=== PATIENT | male | born 1950 | race Caucasian/White ===

== ENCOUNTER → 2016-11-24 | Outpatient (CLI) | payer BC ==
[~2016-11-24] MED LIST: ACETAMINOPHEN-1 EAC1 ORAL; ASPIR 8181 MG ORAL; CIPRO500 MG PO; CIPROFLOXACIN500 M2 ORAL; COSOPT1 DRO2 RIGHT EYE; DEXILANT30 MG ORAL; FERROUS SULFAT325 MG ORAL; Iothalamate Meglumine 60% 30ML INJ ONE; JALYN 0.5-0.41 EACH PO; MULTIVITAMINS1 EAC2 ORAL; RAPAFLO-PATIENT'1 EA PO; VYTORIN 10-401 EACH ORAL
--- NOTE | 2016-11-24 15:50 | Diagnostic Imaging Report ---
Indications: Right lower quadrant abdominal pain, history of bladder cancer Technique: Continuous helical CT imaging of the abdomen and pelvis was performed with automatic exposure control following administration of oral contrast only, on a Siemens sensation [address] scanner. Axial, coronal, sagittal images reconstructed at 3 mm slice thickness. No IV contrast was administered per requesting physicians order, , no contraindications listed. CTDI volume(s): 17 mGy Total DLP: 907 mGy-cm Findings: Comparison: CT abdomen pelvis without and with contrast 09/29/2015 Urinary bladder remains moderately distended with mild diffuse mural thickening, anterior dome diverticulum. Endophytic masses emanating from the left lateral and posterior urinary bladder lowery on previous exam have significantly decreased in size or disappeared. Mild residual asymmetric mural thickening persists in therefore locations. New 17 mm Endophytic mass emanates from the posterior wall of the urinary bladder inferior to the prior site, not seen previously. Indentation, possible invasion of the floor of the urinary bladder by enlarged, multilobulated prostate is unchanged. The perivesical soft tissues remain unremarkable in appearance. Mild dilation of the left renal collecting system and ureter to the level of the ureterovesical junction persists, decreased. Right ureter and renal collecting system remain normal in caliber. Mild stranding again noted adjacent to both kidneys, unchanged. Circumscribed low-attenuation masses emanating exophytically from lower pole cortex of right kidney has mildly increased in size, now 15 mm, not further characterizable on this exam. Accessory splenules, scattered arterial mural calcifications (vascular patency currently indeterminate), relatively proximal position of left testis with adjacent hydrocele persist, not significant changed. Remainder visualized abdominopelvic anatomy demonstrates no other obvious significant abnormality. Small irregular pleural-based linear densities persist in the right lung base. Left lung base, bilateral adjacent pleural surfaces remain clear. Multilevel disc space narrowing with marginal osteophyte formation, vacuum phenomenon, discogenic sclerosis in the lumbar and lower thoracic spine, facet sclerosis and hypertrophy in the lower lumbar spine persist, unchanged. No focal skeletal lesion is identified. IMPRESSION: No evidence of acute abdominopelvic disease, evaluation limited by lack of IV contrast Apparent decrease in to disappearance of the 2 previous bilateral endophytic urinary bladder wall masses present on previous exam and development of versus increase in size of new/third mass more inferiorly along the posterior bladder wall. Neoplasm must be considered. Cystoscopy suggested for further evaluation if not recently performed. Decrease in left hydronephrosis and hydroureter with mild residual Stable prostatomegaly with evidence of chronic bladder outflow obstruction including mural hypertrophy, diverticulum Apparent mild increase in size of right renal lower pole exophytic mass. While cysts can increase in size, neoplasm must be excluded. Ultrasound correlation recommended. Additional stable chronic changes as described
== END | disposition home or self-care (01) ==
LOC: CAT 13:33
DX: R10.11 Right upper quadrant pain (principal); Z85.51 Personal history of malignant neoplasm of bladder; N13.30 Unspecified hydronephrosis; N40.0 Benign prostatic hyperplasia without lower urinary tract symptoms
CPT/HCPCS: 74176

== ENCOUNTER 2016-11-25 05:40 | Day surgery (SDC) | payer BC ==
[2016-11-21 09:33] LABS: BASOPHILS % (AUTO) 1.2 % (0.0-2.0); EOSINOPHILS % (AUTO) 1.6 % (0.0-3.0); LYMPHOCYTES % (AUTO) 22.9 % (20.0-45.0); MEAN CORPUSCULAR HEMOGLOBIN 28.9 PG (27.0-31.0); MEAN CORPUSCULAR HGB CONC 32.8 G/DL (32.0-36.0); MEAN CORPUSCULAR VOLUME 88 FL (80-99); MEAN PLATELET VOLUME 6.1 FL (6.5-10.1); NEUTROPHILS % (AUTO) 66.4 % (45.0-75.0); PLATELET COUNT 309 K/UL (150-450); RED BLOOD COUNT 5.38 M/UL (4.70-6.10); RED CELL DISTRIBUTION WIDTH 11.8 % (11.6-14.8)
[2016-11-21 09:39] LABS: PROTHROMBIN TIME 10.4 SEC (9.30-11.50)
[2016-11-21 09:54] LABS: ALBUMIN/GLOBULIN RATIO 1.3 (1.0-2.7); CALCIUM 9.4 mg/dL (8.6-10.2); CREATININE 1.4 mg/dL (0.7-1.2); GLOMERULAR FILTRATION RATE 50.7 mL/min (>60); POTASSIUM 4.6 mEQ/L (3.4-4.9); TOTAL PROTEIN 7.5 g/dL (6.6-8.7)
[2016-11-21 10:16] LABS: PSA TOTAL 2.4 ng/mL (< 4.5); THYROID STIMULATING HORMONE 0.952 uIU/mL (0.300-4.500)
[2016-11-21 11:04] LABS: HEMOGLOBIN A1C 6.7 % (< 6.0)
[2016-11-21 11:14] LABS: CHOLESTEROL/HDL RATIO 4.5 (3.3-4.4)
[~2016-11-25] VITALS: Ht 175.3 cm; Wt 91.2 kg
[2016-11-25] VITALS (9 sets, daily range): BP systolic 123–139; BP diastolic 65–78
[~2016-11-25 05:40] MED LIST changes: -Iothalamate Meglumine 60% 30ML INJ ONE
--- NOTE | 2016-11-25 06:40 | Anethesia Preoperative Eval ---
Anesthesia Pre-op PMH/ROS General Date of Evaluation: November 25, 2016 Anesthesiologist: Keven ASA Score: ASA 2 Mallampati Score Class I : Soft palate, uvula, fauces, pillars visible Class II: Soft palate, uvula, fauces visible Class III: Soft palate, base of uvula visible Class IV: Only hard plate visible Mallampati Classification: Class II Surgeon: Gary Diagnosis: Bladeer canceer Surgical Procedure: Cystoscopy, TURBT Anesthesia History: none Family History: no anesthesia problems Allergies: Coded Allergies: PEANUT (Unverified Allergy, Unknown, 05/10/14) Medications: see eMAR Past Medical History Cardiovascular: Reports: other - HLD, Denies: CAD, HTN, RI, arrhythmia, valve dz Pulmonary: Denies: COPD, BHUMIKA, asthma, other Gastrointestinal/Genitourinary: Reports: GERD, other - chronic left hydronephrosis, BPH, Denies: CRI, ESRD Neurologic/Psychiatric: Denies: CVA, TIA, dementia, depression/anxiety, other Endocrine: Denies: DM, hypothyroidism, other, steroids HEENT: Denies: [place] (L), [place] (R), cataract (L), cataract (R), glaucoma, other Hematology/Immune: Denies: DVT, anemia, bleeding disorder, other Musculoskeletal/Integumentary: Denies: DDD, DJD, OA, RA, edema, other PSxH Narrative: T&A, TURBT Anesthesia Pre-op Phys. Exam Physician Exam Last Vital Signs Date Time Temp Pulse Resp B/P Pulse Ox O2 Delivery O2 Flow Rate FiO2 11/25/16 06:02 97.9 64 18 123/72 95 Room Air Constitutional: NAD Cardiovascular: RRR Respiratory: CTA Airway Exam Mallampati Score: Class II MO: full ROM: full Teeth: intact Anesthesia Pre-op A/P Labs see chart Studies Pre-op Studies: EKG - sr Risk Assessment & Plan Assessment: ASA II Plan: GA Status Change Before Surgery: No Pre-Antibiotics Drug: Ancef 2g Given Within 1 Hr of Incision: LAZARO Oliveira M.D. November 25, 2016 06:40
[2016-11-25] MEDS ORDERED: MITOMYCIN TOPIC ONE (07:00)
[2016-11-25] MEDS ORDERED: Cefepime HCl 1 GM in D5W 55 ML IVPB ONE (07:00)
[2016-11-25] MEDS ORDERED: Cefepime 1gm vial ONE (07:03)
--- NOTE | 2016-11-25 07:12 | Urology Progress Note ---
Assessment/Plan Assessment/Plan hx of bladder ca, recurrent tumor BPH hx retention hx hydro hx plan TURBT may need right ureteral stent because of close proximity of tumor to right ureteral orifice d/w pt fully risks, etc Subjective Allergies: Coded Allergies: PEANUT (Unverified Allergy, Unknown, 05/10/14) Subjective for surg today, PMH/chart all noted Objective Last 24 Hour Vital Signs Date Time Temp Pulse Resp B/P Pulse Ox O2 Delivery O2 Flow Rate FiO2 11/25/16 06:02 97.9 64 18 123/72 95 Room Air Height (Feet): 5 Height (Inches): 9.00 Weight (Pounds): 201 Objective exam stable SUDEEPNICOLÁS MONTES DE OCA November 25, 2016 07:12
--- NOTE | 2016-11-25 07:13 | Pre-Procedure Note/Attestation ---
Pre-Procedure Note/Attestation Complete Prior to Procedure Planned Procedure: bilateral Procedure Narrative: cystoscopy, TURBT, bladder biopsy, bilateral retrograde pyelogram, instill mitomycin, possible ureteral stent Indications for Procedure Pre-Operative Diagnosis: recurrent bladder tumor Attestation I attest that I discussed the nature of the procedure; its benefits; risks and complications; and alternatives (and the risks and benefits of such alternatives ), prior to the procedure, with the patient (or the patient's legal installation service representative). I attest that, if there was a reasonable possibility of needing a blood transfusion, the patient (or the patient's legal installation service representative) was given the [facility] standardized written summary, pursuant to the Seth Lisa Blood Safety Act ([place] Health and Safety Code # 1645, as amended). I attest that I re-evaluated the patient just prior to the surgery and that there has been no change in the patient's H&P, except as documented below: n/a NICOLÁS PENN November 25, 2016 07:13
[2016-11-25] MEDS ORDERED: Nimbex 2mg/ml Inj 10ML IVP ONE (07:30)
[2016-11-25] MEDS ORDERED: fentaNYL 250mcg/5ml ONE (07:30)
[2016-11-25] MEDS ORDERED: Metoclopramide 10mg/2ml Inj ONE (07:30)
[2016-11-25] MEDS ORDERED: Dexamethasone 4mg/ml vial ONE (07:30)
[2016-11-25] MEDS ORDERED: Propofol 10mg/ml 20ml IV ONE (07:30)
[2016-11-25] MEDS ORDERED: Lidocaine 1% MPF 10mg/ml 5ml ONE (07:30)
[2016-11-25] MEDS ORDERED: Midazolam 2mg/2ml Inj ONE (07:30)
[2016-11-25] MEDS ORDERED: NS Irrig 4000ml IRRIG ONE (07:43)
[2016-11-25] MEDS ORDERED: Sterile Water For Irrig 2000ml IRRIG ONE (07:43)
[2016-11-25] MEDS ORDERED: NS Irrig 1000ml IRRIG ONE (07:43)
[2016-11-25] MEDS ORDERED: Sterile Water Irrig 1000ml IRRIG ONE (07:43)
[2016-11-25] MEDS ORDERED: Metoclopramide 10mg/2ml Inj IVP PRN (07:45)
[2016-11-25] MEDS ORDERED: LORazepam Inj 2mg/ml 1ml IV PRN (07:45)
[2016-11-25] MEDS ORDERED: Hydromorphone 0.5mg/0.5ml inj IVP PRN (07:45)
[2016-11-25] MEDS ORDERED: DiphenhydrAMINE 50mg/ml Inj IVP PRN (07:45)
[2016-11-25] MEDS ORDERED: fentaNYL 100 mcg/2 mL IV PRN (07:45)
[2016-11-25] MEDS ORDERED: Midazolam 2mg/2ml Inj IVP PRN (07:45)
[2016-11-25] MEDS ORDERED: Iothalamate Meglumine 60% 30ML INJ ONE (07:57)
--- NOTE | 2016-11-25 08:55 | Brief Operative Note ---
Immediate Post Operative Note Operative Note Pre-op Diagnosis: recurrent bladder tumor Procedure: cystoscopy, random bladder biopsies, bilateral retrograde pyelograms, TURBT, right ureteral stent, instill mitomycin Post-op Diagnosis: same as pre-op Findings: other - large papillary tumor near right ureteral orifice, smaller tumor left posterior Surgeon: martin Anesthesiologist: seamus Anesthesia: general Specimen: yes Complications: none Condition: stable Estimated Blood Loss: minimal Drains: other - brower Implant(s) used?: Yes - 6f x 26 cm right JJ ureteral stent NICOLÁS PENN November 25, 2016 08:55
--- NOTE | 2016-11-25 09:06 | Immediate Post-Op Evaluation ---
Immediate Post-Op Evalulation Immediate Post-Op Evalulation Procedure: Cystoscopy, TURBT, bladder biopsy, retrograde pyelogram Date of Evaluation: November 25, 2016 Time of Evaluation: 09:07 IV Fluids: 950 Blood Products: 0 Estimated Blood Loss: <50ml Urinary Output: 0 Blood Pressure Systolic: 130 Blood Pressure Diastolic: 65 Pulse Rate: 76 Respiratory Rate: 16 O2 Sat by Pulse Oximetry: 99 Temperature (Fahrenheit): 98.2 Pain Score (1-10): 0 Nausea: No Vomiting: No Complications 0 Patient Status: awake, reacts, patent, none Hydration Status: adequate Drug: Cefepime 1g Given Within 1 Hr of Incision: Yes Time Given: 07:30 LAZARO NOBLE M.D. November 25, 2016 09:06
--- NOTE | 2016-11-25 10:53 | 48 Hour Post Anesthesia Eval ---
Post Anesthesia Evaluation Procedure: Cystoscopy, TURBT, bladder biopsy, retrograde pyelogram Date of Evaluation: November 25, 2016 Time of Evaluation: 10:55 Blood Pressure Systolic: 139 0: 73 Pulse Rate: 75 Respiratory Rate: 20 Temperature (Fahrenheit): 98.2 O2 Sat by Pulse Oximetry: 99 Airway: patent Nausea: No Vomiting: No Pain Intensity: 1 Hydration Status: adequate Cardiopulmonary Status: at baseline Mental Status/LOC: patient returned to baseline Post-Anesthesia Complications: 0 Follow-up care needed: ready to discharge LAZARO NOBLE M.D. November 25, 2016 10:53
[2016-11-25] MEDS ORDERED: Norco 5mg/325mg tab ORAL ONE (11:15)
--- NOTE | 2016-11-25 14:14 | Diagnostic Imaging Report ---
Indication: PAIN Technique: Digital intraoperative images Comparison: 10/07/2015 Findings: Opacification of normal caliber ureters, mildly prominent bilateral renal collecting system is demonstrated. Completion images demonstrate placement of a right nephroureteral stent Impression: Intraoperative imaging, as described
--- NOTE | 2016-11-26 09:02 | Operative Note - Dictated ---
DATE OF OPERATION: 11/25/2016 NOTE: POOR AUDIO QUALITY PREOPERATIVE DIAGNOSIS: Recurrence of bladder tumor. POSTOPERATIVE DIAGNOSIS: Recurrence of bladder tumor. PROCEDURE PERFORMED: Cystoscopy with urethral calibration, random bladder biopsies, bilateral retrograde pyelogram, transurethral resection of the bladder tumor with extensive fulguration and intravesical instillation of mitomycin. OPERATING SURGEON: Gregory Vega M.D. ANESTHESIOLOGIST: Dr. Harmon. ANESTHESIA: General. INDICATION FOR PROCEDURE: This is a pleasant 66-year-old male, who has a history of BPH. He has a history of bladder cancer. He has had a tumor resection last year. He has had treatment with intravesical BCG. Recent surveillance cystoscopy revealed recurrence of the tumor. He had two papillary tumors, the larger one on the trigone adjacent to the right ureteral orifice and a smaller one in the left posterior. He had a CT scan, which did not show any metastatic disease. He has left-sided hydronephrosis, which is mild and it is chronic. Decision was made to proceed with dissection of the recurrent tumor. The nature of the procedure was discussed with the patient extensively in detail, possible risks and complications of bleeding, infection, anesthesia, damage to the bladder, perforation, etc., were discussed. No guarantees were given or implied. I did explain in detail to the patient that the larger bladder tumor is very close to the right ureteral orifice and that orifice may need to place a stent in the ureter and he understands this. FINDINGS: The patient had an acute bladder tumor. The larger one was on the trigone just adjacent and posterior to the right ureteral orifice. This was about 2 to 3 cm and the other one was a small papillary tumor that was on the posterior wall of the bladder. Bilateral retrograde pyelogram did not show any upper tract abnormalities. Random biopsies were taken. from the previous resection he does have some distal apical obstruction. PROCEDURE IN DETAIL: Informed consent was obtained from the patient. The patient was brought to the operating room and placed in the supine position. General anesthesia was induced. The patient was placed in a modified dorsal lithotomy position and genitalia was prepped and draped in the usual sterile fashion. Preoperative IV antibiotics were administered. Time-out was performed. At this point, the distal calibrated . Cystoscopy was performed. The urethra showed some panurethral narrowing. I was able to push the scope through the there was some obstructive tissue distally. The bladder neck was opened. The bladder was then inspected carefully, biopsies. The left ureteral orifice was patulous. There was papillary tumor that was adjacent and behind the right ureteral orifice, which is about 2 cm. There was a smaller papillary tumor in the left posterior. At this point, the left ureteral orifice was cannulated with open-end catheter and retrograde pyelogram was done ____ of the ureter the distal ureter with contrast. the contrast would not go up into the kidney. As such, an angled wire was then passed through to negotiate up into the proximal ureter. The open-end of the catheter was advanced and contrast was then injected opacified at the proximal the left side of the ____. On the right side, the orifice was encountered with an open-ended catheter. Retrograde pyelogram was done, which did not show any upper tract filling defects. At this point, random bladder biopsies were taken and the cold cup biopsies right lateral posterior wall of the bladder. These areas were then cauterized. Good hemostasis was obtained. At this point, the cystoscope was then removed and then switched over to resectoscope. bipolar and tumor on the trigone was dissected down to the base. The area of the dissection was very close to the orifice. At this point, a decision was made by me right ureteral stent to protect the orifice. I do not want to cauterize that area. The tumor in the left posterior area was also dissected with resectoscope. The base was then cauterized with the . The resectoscope was then removed. The cystoscope was reinserted in the right ureteral orifice ____ and an angled wire was then passed and a 6-Greek x26 cm double-J stent was placed in the collecting system under fluoroscopic and visual guidance. It appeared to be in good position with a good curve in the kidney as well as the bladder. A small string was noted at the distal end. At this time, using a bulb, the further cauterization was done at the area of the tumor and hemostasis was obtained and Greek Kilgore catheter was placed with 40 mg of mitomycin and 40 mL of water was instilled into the bladder. The catheter was clamped and the patient was taken to recovery in stable condition. Blood loss is minimal. No complications. The plan is to the Kilgore catheter to gravity drainage in one hour in the recovery room. Gregory Vega M.D. DR: ANDRES JOB#: [id number] CC:
== END 2016-11-25 12:05 | disposition home or self-care (01) ==
LOC: SUR 05:40 → EDSTATUS 07:30 → SUR 12:05
DX: C67.4 Malignant neoplasm of posterior wall of bladder (principal); E78.5 Hyperlipidemia, unspecified; K21.9 Gastro-esophageal reflux disease without esophagitis; N13.39 Other hydronephrosis; N40.0 Benign prostatic hyperplasia without lower urinary tract symptoms; Z91.010 Allergy to peanuts
CPT/HCPCS: 36415; 52234; 74420; 76000; 80053; 80061; 83036; 84153; 84439; 84443; 84480; 85025; 85610; 85730; J0692; J1100; J2250; J2405; J2704; J2765; J3010; Q9961; 94003; 94150

== ENCOUNTER 2018-06-28 05:35 | Day surgery (SDC) | payer BC ==
[2018-06-18 16:28] LABS: BASOPHILS % (AUTO) 1.3 % (0.0-2.0); EOSINOPHILS % (AUTO) 2.6 % (0.0-3.0); HEMATOCRIT 44.1 % (42.0-52.0); HEMOGLOBIN 14.9 G/DL (14.2-18.0); MEAN CORPUSCULAR VOLUME 86 FL (80-99); MONOCYTES % (AUTO) 10.2 % (1.0-10.0); NEUTROPHILS % (AUTO) 60.9 % (45.0-75.0); PLATELET COUNT 286 K/UL (150-450); RED BLOOD COUNT 5.15 M/UL (4.70-6.10); RED CELL DISTRIBUTION WIDTH 11.2 % (11.6-14.8); WHITE BLOOD COUNT 9.2 K/UL (4.8-10.8)
[2018-06-18 17:00] LABS: INR 0.9 (0.9-1.1)
[2018-06-18 17:04] LABS: ANION GAP 12 mmol/L (5-15); BLOOD UREA NITROGEN 20 mg/dL (7-18); CALCIUM 8.8 MG/DL (8.5-10.1); CARBON DIOXIDE 26 MMOL/L (21-32); CHLORIDE 104 MMOL/L (98-107); CREATININE 1.4 MG/DL (0.55-1.30); POTASSIUM 4.1 MMOL/L (3.5-5.1); SODIUM 142 MMOL/L (136-145)
--- NOTE | 2018-06-26 12:23 | Cardiology Report ---
APPROVED REPORT EKG Measurement Heart [id number] VT [id number] [id number] Normal sinus rhythm Normal ECG
[~2018-06-28] VITALS: Ht 175.3 cm; Wt 83.9 kg
[2018-06-28] VITALS (18 sets, daily range): BP systolic 102–139; BP diastolic 6–72
[2018-06-28] MEDS ORDERED: Cefepime HCl 1 GM in D5W 55 ML IVPB ONE (05:45)
[2018-06-28] MEDS ORDERED: TAMSULOSIN HCL0.4 MG ORAL (06:14)
[2018-06-28] MEDS ORDERED: AVODART0.5 MG ORAL (06:14)
[2018-06-28] MEDS ORDERED: METFORMIN HCL500 M1 ORAL (06:14)
[2018-06-28] MEDS ORDERED: tragenta PO (06:14)
[2018-06-28] MEDS ORDERED: fentaNYL 100 mcg/2 mL IV ONE (06:44)
[2018-06-28] MEDS ORDERED: Midazolam 2mg/2ml Inj ONE (06:45)
[2018-06-28] MEDS ORDERED: cefOXitin 1gm Inj ONE (06:54)
[2018-06-28] MEDS ORDERED: Zemuron 50mg/5ml Inj IV ONE (06:54)
[2018-06-28] MEDS ORDERED: Succinylcholine 20mg/ml 10ml vial ONE (06:55)
[2018-06-28] MEDS ORDERED: Lidocaine 1% MPF 10mg/ml 5ml ONE (06:56)
[2018-06-28] MEDS ORDERED: Propofol 200mg/20ml IV ONE (06:56)
[2018-06-28] MEDS ORDERED: LR 1000ml ONE (07:00)
[2018-06-28] MEDS ORDERED: Sterile Water Irrig 1000ml IRRIG ONE (07:00)
[2018-06-28] MEDS ORDERED: Sterile Water For Irrig 2000ml IRRIG ONE (07:00)
[2018-06-28] MEDS ORDERED: Iothalamate Meglumine 60% 30ML INJ ONE (07:03)
--- NOTE | 2018-06-28 07:12 | Urology Progress Note ---
Assessment/Plan Assessment/Plan bladder ca hx with recurrence BPH hx LUTS hx plan TURBT/bx/RPG/mitocycin today preop labs are noted d/w pt fully will proceed Objective Last 24 Hour Vital Signs Date Time Temp Pulse Resp B/P (MAP) Pulse Ox O2 Delivery O2 Flow Rate FiO2 06/28/18 06:24 Room Air 06/28/18 06:19 97.9 72 18 139/71 97 Room Air Height (Feet): 5 Height (Inches): 9.00 Weight (Pounds): 185 Objective exam stable Gregory Vega MD Jun 28, 2018 07:12
--- NOTE | 2018-06-28 07:13 | Pre-Procedure Note/Attestation ---
Pre-Procedure Note/Attestation Complete Prior to Procedure Planned Procedure: bilateral Procedure Narrative: cysto, TURBT, bladder biopsy, bilateral RPG, instill mitomycin Indications for Procedure Pre-Operative Diagnosis: bladder ca hx with recurrence Attestation I attest that I discussed the nature of the procedure; its benefits; risks and complications; and alternatives (and the risks and benefits of such alternatives ), prior to the procedure, with the patient (or the patient's legal enrollment representative). I attest that, if there was a reasonable possibility of needing a blood transfusion, the patient (or the patient's legal enrollment representative) was given the [facility] standardized written summary, pursuant to the Seth Lisa Blood Safety Act ([place] Health and Safety Code # 1645, as amended). I attest that I re-evaluated the patient just prior to the surgery and that there has been no change in the patient's H&P, except as documented below: Gregory Vega MD Jun 28, 2018 07:13
[2018-06-28] MEDS ORDERED: LR 1000ml 1,000 ML IVLG SCH (08:17)
--- NOTE | 2018-06-28 08:17 | Anethesia Preoperative Eval ---
Anesthesia Pre-op PMH/ROS General Date of Evaluation: Jun 28, 2018 Time of Evaluation: 06:55 Anesthesiologist: Matt ASA Score: ASA 2 Mallampati Score Class I : Soft palate, uvula, fauces, pillars visible Class II: Soft palate, uvula, fauces visible Class III: Soft palate, base of uvula visible Class IV: Only hard plate visible Mallampati Classification: Class II Surgeon: Gary Diagnosis: Recurrent bladder tumor Surgical Procedure: Cysto ecxcision of bladder tumor Anesthesia History: none Family History: no anesthesia problems Allergies: Coded Allergies: PEANUT (Unverified Allergy, Unknown, 05/10/14) Medications: see eMAR Patient NPO?: Yes Past Medical History Cardiovascular: Denies: HTN, CAD, DC, valve dz, arrhythmia, other Pulmonary: Denies: asthma, COPD, BHUMIKA, other Gastrointestinal/Genitourinary: Reports: GERD, CRI - Cr. 1,4, other - recurrent bladder tumor Neurologic/Psychiatric: Denies: dementia, CVA, depression/anxiety, TIA, other Endocrine: Reports: DM - stable on pills; Denies: hypothyroidism, steroids, other HEENT: Denies: cataract (L), cataract (R), glaucoma, [place] (L), [place] (R), other Hematology/Immune: Denies: anemia, DVT, bleeding disorder, other Musculoskeletal/Integumentary: Denies: OA, RA, DJD, DDD, edema, other PMH Narrative: as above PSxH Narrative: Treatment of recurrent bladder tumor Anesthesia Pre-op Phys. Exam Physician Exam Last Vital Signs Date Time Temp Pulse Resp B/P (MAP) Pulse Ox O2 Delivery O2 Flow Rate FiO2 06/28/18 06:24 Room Air 06/28/18 06:19 97.9 72 18 139/71 97 Constitutional: NAD Neurologic: CN 2-12 intact Cardiovascular: RRR, no M/R/G Respiratory: CTA Gastrointestinal: S/NT/ND Airway Exam Mallampati Score: Class II MO: full Neck: flexible ROM: full Teeth: intact Dentures: no upper, no lower Anesthesia Pre-op A/P Labs see chart Studies Pre-op Studies: EKG - NSR Risk Assessment & Plan Assessment: ASA 2 Plan: GA with LMA Status Change Before Surgery: No Pre-Antibiotics Drug: Cefoxitin 1gr. Given Within 1 Hr of Incision: Yes Time Given: 07:25 Polo Gutierrez MD Jun 28, 2018 08:17
[2018-06-28] MEDS ORDERED: DiphenhydrAMINE 50mg/ml Inj IVP PRN (08:30)
[2018-06-28] MEDS ORDERED: Metoclopramide 10mg/2ml Inj IVP PRN (08:30)
--- NOTE | 2018-06-28 08:45 | Brief Operative Note ---
Immediate Post Operative Note Operative Note Pre-op Diagnosis: bladder ca hx with recurrence Procedure: cysto, bladder bx's bilat RPG, TURBT, fulg, instill mitomycin Post-op Diagnosis: same as pre-op Surgeon: martin Anesthesiologist: jessica Anesthesia: general Specimen: yes Complications: none Condition: stable Fluids: NS Estimated Blood Loss: minimal Implant(s) used?: No Gregory Vega MD Jun 28, 2018 08:45
--- NOTE | 2018-06-28 08:49 | Immediate Post-Op Evaluation ---
Immediate Post-Op Evalulation Immediate Post-Op Evalulation Procedure: Cysto retrograde pyelogram, excision of bladder tumor Date of Evaluation: Jun 28, 2018 Time of Evaluation: 08:48 IV Fluids: 1000 Blood Products: none Estimated Blood Loss: min Urinary Output: n/a Blood Pressure Systolic: 127 Blood Pressure Diastolic: 64 Pulse Rate: 62 Respiratory Rate: 20 O2 Sat by Pulse Oximetry: 99 Temperature (Fahrenheit): 97.7 Pain Score (1-10): 1 Nausea: No Vomiting: No Complications none Patient Status: reacts, patent, none Hydration Status: adequate Polo Gutierrez MD Jun 28, 2018 08:49
[2018-06-28] MEDS: Hydromorphone 0.5mg/0.5ml inj IVP PRN ×2 (08:59→09:28)
[2018-06-28] MEDS ORDERED: Norco 5mg/325mg tab ONE (10:43)
[2018-06-28] MEDS ORDERED: Norco 5mg/325mg tab ORAL ONE (10:45)
--- NOTE | 2018-06-28 13:07 | 48 Hour Post Anesthesia Eval ---
Post Anesthesia Evaluation Procedure: Cysto retrograde pyelogram, excision of bladder tumor Date of Evaluation: Jun 28, 2018 Time of Evaluation: 11:45 Blood Pressure Systolic: 116 0: 72 Pulse Rate: 68 Respiratory Rate: 20 Temperature (Fahrenheit): 98.4 O2 Sat by Pulse Oximetry: 98 Airway: patent Nausea: No Vomiting: No Pain Intensity: 2 Hydration Status: adequate Cardiopulmonary Status: stable Mental Status/LOC: patient returned to baseline Follow-up Care/Observations: n/a Post-Anesthesia Complications: none Follow-up care needed: ready to discharge Polo Gutierrez MD Jun 28, 2018 13:07
--- NOTE | 2018-06-29 02:15 | Operative Note - Dictated ---
DATE OF OPERATION: 06/28/2018 PREOPERATIVE DIAGNOSES: 1. Recurrent bladder cancer. 2. History of BPH. POSTOPERATIVE DIAGNOSES: 1. Recurrent bladder cancer. 2. History of BPH. PROCEDURE PERFORMED: Cystoscopy, urethral calibration, transurethral resection of bladder tumor, random bladder biopsy, bilateral retrograde pyelogram, extensive fulguration of bladder and prostate, and intravesical instillation of mitomycin. OPERATING SURGEON: Gregory Vega M.D. ANESTHESIOLOGIST: Polo Gutierrez M.D. ANESTHESIA: General. INDICATION FOR PROCEDURE: This is a pleasant 68-year-old male. He has a history of BPH and TURP. He has a history of bladder cancer. He has a number of previous resections. He has been treated with intravesical BCG before. He had recent surveillance cystoscopy, which showed recurrence of the tumor and he was brought for resection of the tumor. The nature of the procedure including possible complication of bleeding, infection, anesthesia, damage to the urethra, bladder perforation, need for surgery etc., were discussed. No guarantees were given or implied. FINDINGS: The patient had papillary bladder tumor, which was on the right lateral posterior wall, which was about a little over 2 cm. It was a solitary tumor. The rest of the bladder showed some areas of trabeculation. No obvious tumors. Bilateral retrograde pyelogram did not show filling defects. PROCEDURE IN DETAIL: Informed consent was obtained from the patient. The patient was brought to the operating room and then placed in the supine position. After successful general anesthesia was induced, the patient was then placed in the modified dorsal lithotomy position. Genitalia was then prepped and draped in usual sterile fashion. Preoperative IV antibiotics were administered. Time-out was performed. At this point, the patient's distal urethral meatus were gently dilated with using copious lubrication. Cystoscopy was then performed irregular with some obstruction distally. The bladder was then inspected carefully, was trabeculated, had occasional erythematous areas. There was papillary tumor of the right side of the bladder posterior lateral close to the dome and this was about 2 to 2.5 cm. It appeared to be a solitary bladder tumor. Again, the rest of the bladder was inspected very carefully with both 30 and 70-degree lenses and I did not see any other bladder tumors. The ureteral orifices showed clear efflux. They were slightly ectopic. At this point, the right ureteral orifice was cannulated with an open-ended catheter. Retrograde pyelogram was done. I did not see any obvious filling defects. This was repeated on the left side with similar findings. At this point, using the cold cup biopsy forceps, random bladder biopsies were taken from the posterior part of the bladder as was the left lateral part and the base was then cauterized with electrocautery. The papillary bladder tumor was then resected using multiple passes of the cold cup biopsy forceps. I was able to resect the entire tumor down to the base and I took deep biopsies into what appeared to be muscle layer. The entire tumor was removed as was the margins and then I used a Bugbee electrode to extensively fulgurate the entire base of the tumor and excellent hemostasis was obtained. There was mild oozing from the prostate. It was cauterized also. Good hemostasis was obtained. The cystoscope was removed. Kilgore catheter was placed. A 40 mg of mitomycin was instilled into the bladder. Catheter was clamped. The patient was awakened and was taken to the recovery room in stable condition. Blood loss was minimal. No complications. The plan is to unclamp the Kilgore in one hour in the recovery room. Gregory Vega M.D. DR: Susan JOB#: [id number] CC:
== END 2018-06-28 12:25 | disposition home or self-care (01) ==
LOC: EEVIPCON → SDS 05:35 → SUR 12:25
DX: C67.4 Malignant neoplasm of posterior wall of bladder (principal); K21.9 Gastro-esophageal reflux disease without esophagitis; E11.22 Type 2 diabetes mellitus with diabetic chronic kidney disease; N18.9 Chronic kidney disease, unspecified; Z91.010 Allergy to peanuts
CPT/HCPCS: 36415; 52005; 52204; 74420; 76000; 80048; 82962; 85025; 85610; 85730; 93005; J0694; J1170; J2250; J2405; J2704; J3010; Q9961; 94003; 94150

== ENCOUNTER → 2019-12-27 | Outpatient (CLI) | payer MEDICARE, BC ==
[~2019-12-27] MED LIST changes: +AVODART0.5 MG ORAL; +METFORMIN HCL500 M1 ORAL; +TAMSULOSIN HCL0.4 MG ORAL; +tragenta PO
--- NOTE | 2019-12-27 15:07 | Diagnostic Imaging Report ---
EXAM: CT CT Abdomen Pelvis WO Contrast INDICATION: Flank pain. COMPARISON: 11/24/2016 TECHNIQUE: Axial images were obtained through the abdomen pelvis without intravenous contrast. Sagittal and coronal reformats are generated. All CT scans at this facility are performed using dose modulation techniques as appropriate to a performed exam including the following: automated exposure control with adjustment of the mA and/or kV according to patient size. RADIATION DOSE: CTDIvol: 6.6 mGy DLP: 347.8 mGy-cm Dose information generated by the CT scanner is available in PACS. FINDINGS: The lung bases are clear. The liver and spleen are homogeneous. Gallbladder is without sludge or stone and there is no wall thickening. The pancreas is unremarkable. Adrenals are normal in morphology. Right kidneys unremarkable. There is atrophy and cortical thinning of the left kidney. Moderate to severe left hydronephrosis noted increased compared to previous exam. Hydroureter extends into the pelvis. Small bowel loops are nondistended. Increased stool lucencies noted throughout the colon. The appendix is normal. There is no free fluid or free air. No pathologic adenopathy demonstrated. There is abnormal soft tissue thickening noted along the left posterior lateral aspect of the urinary bladder and confluent with the underlying prostate. The appearance is suspicious for possible prostatic malignancy with invasion of the base of the bladder. The left UVJ region appears affected and likely the cause of the left-sided hydroureteronephrosis. Degenerative changes and slight scoliosis of the spine noted. No discrete osseous lesion demonstrated. IMPRESSION: ABNORMAL MASSLIKE SOFT TISSUE THICKENING NOTED ALONG THE LEFT POSTERIOR LATERAL ASPECT OF THE URINARY BLADDER CONFLUENT WITH THE UNDERLYING PROSTATE. APPEARANCE IS SUSPICIOUS FOR POSSIBLE PROSTATIC MALIGNANCY WITH INVASION OF THE BASE OF THE BLADDER. THERE IS INVOLVEMENT OF THE LEFT UVJ REGION AND LIKELY THE CAUSE OF LEFT-SIDED HYDROURETERONEPHROSIS WHICH HAS INCREASED COMPARED TO PRIOR EXAM.
== END | disposition home or self-care (01) ==
LOC: CAT 07:57
DX: R10.9 Unspecified abdominal pain (principal); M41.9 Scoliosis, unspecified; N13.30 Unspecified hydronephrosis
CPT/HCPCS: 74176

== ENCOUNTER → 2019-12-30 | Outpatient (CLI) | payer MEDICARE, BC ==
[~2019-12-30] VITALS: Ht 175.3 cm; Wt 77.1 kg
--- NOTE | 2019-12-30 17:17 | Diagnostic Imaging Report ---
Indication: Hydronephrosis, renal insufficiency Technique: IV administration 9.8 mCi 99m technetium MAG3. Flow and static images were obtained. Renogram curves were computer generated. 20 mg of Lasix injected at 24 minutes Comparison: No comparison sonograms. Reference made to abdomen pelvis CT scan dated 12/27/2019 Findings: Flow images demonstrate asymmetric tracer uptake into the right kidney prior to the left kidney as well as much more intense tracer uptake. Static images demonstrate normal uptake and excretion in the right kidney. There is delayed filling of the hydronephrotic left renal collecting system. However, tracer is seen fairly early within the left ureter, and there is gradual emptying of the left renal collecting system and renal parenchyma on the later images. Renogram curves demonstrate renal split function of 72.4% right, 27.6% left. Time to peak on the right is 3 minutes, and time from peak to one half max is 10 minutes. Time to peak on the left is 26 minutes and time from peak to one half max is 12 minutes. Impression: Normal right kidney Delayed excretion and washout of the left kidney, with prior CT evidence of hydronephrosis and hydroureter. However, washout of tracer indicates a degree of obstruction, if any, is only partial 72.4% right and 27.6% left split function Findings discussed by phone with at the time of interpretation
== END | disposition home or self-care (01) ==
LOC: NUM 13:04
DX: N13.30 Unspecified hydronephrosis (principal); N28.9 Disorder of kidney and ureter, unspecified
CPT/HCPCS: 78707; A4641; J1940

== ENCOUNTER → 2020-01-08 | Outpatient (CLI) | payer MEDICARE, BC ==
[2020-01-08 08:32] LABS: ANION GAP 9 mmol/L (5-15); BLOOD UREA NITROGEN 25 mg/dL (7-18); CALCIUM 8.6 MG/DL (8.5-10.1); CARBON DIOXIDE 27 MMOL/L (21-32); CHLORIDE 106 MMOL/L (98-107); CREATININE 1.8 MG/DL (0.55-1.30); POTASSIUM 4.9 MMOL/L (3.5-5.1); SODIUM 142 MMOL/L (136-145)
== END | disposition home or self-care (01) ==
LOC: LAB 07:43
DX: N18.3 Chronic kidney disease, stage 3 (moderate) (principal)
CPT/HCPCS: 36415; 80048; 83036; 84153

== ENCOUNTER → 2020-01-30 | Outpatient (CLI) | payer MEDICARE, BC ==
[2020-01-30 07:30] LABS: BASOPHILS % (AUTO) 1.6 % (0.0-2.0); EOSINOPHILS % (AUTO) 1.9 % (0.0-3.0); HEMATOCRIT 42.6 % (42.0-52.0); HEMOGLOBIN 14.4 G/DL (14.2-18.0); LYMPHOCYTES % (AUTO) 20.6 % (20.0-45.0); MEAN CORPUSCULAR VOLUME 88 FL (80-99); MONOCYTES % (AUTO) 8.9 % (1.0-10.0); PLATELET COUNT 288 K/UL (150-450); RED BLOOD COUNT 4.81 M/UL (4.70-6.10); WHITE BLOOD COUNT 8.4 K/UL (4.8-10.8)
[2020-01-30 08:07] LABS: ANION GAP 6 mmol/L (5-15); BLOOD UREA NITROGEN 27 mg/dL (7-18); CALCIUM 9.3 MG/DL (8.5-10.1); CARBON DIOXIDE 29 MMOL/L (21-32); CHLORIDE 107 MMOL/L (98-107); PHOSPHORUS 3.8 MG/DL (2.5-4.9); POTASSIUM 4.5 MMOL/L (3.5-5.1); SODIUM 142 MMOL/L (136-145)
== END | disposition home or self-care (01) ==
LOC: LAB 07:04
DX: R97.20 Elevated prostate specific antigen [PSA] (principal)
CPT/HCPCS: 36415; 80048; 83036; 83970; 84100; 84153; 84165; 85025; 85610; 85730